=== PATIENT | female | born 1985 | race Caucasian/White ===

== ENCOUNTER 2020-07-11 05:33 | Emergency (ER) | payer SELFPAY ==
--- NOTE | 2020-07-11 06:23 | ED.PDOC ---
History of Present Illness - General Source: patient, RN notes reviewed, Vital Signs reviewed Exam Limitations: no limitations - History of Present Illness Initial Comments: Patient is a 35-year-old white female who presents with complaints of body aches, intermittent cough, sore throat, back pain with frequency of urination. Patient also complains of fever to 99.6 degrees. Patient denies any contact anybody with COVID. She is not short of breath. The body aches are throbbing in nature. Nothing makes them better or worse. Patient has not taken any medicine for this. Timing/Duration: 24 hours Severity: moderate Improving Factors: nothing Worsening Factors: nothing Associated Symptoms: cough, fever/chills, malaise <Hany Zambrano - Last Filed: 07/11/20 07:00> <Ayush White - Last Filed: 07/11/20 08:26> - General Chief Complaint: Respiratory Problem Stated Complaint: bodyaches, cough, back pain Time Seen by Provider: 07/11/20 05:47 - History of Present Illness Allergies/Adverse Reactions: Allergies NO KNOWN ALLERGY Allergy (Verified 07/11/20 06:08) Home Medications: Ambulatory Orders Ondansetron Odt [Zofran ODT] 4 mg PO Q8HR PRN #5 tab 07/11/20 Review of Systems - Review of Systems Constitutional: States: see HPI, fever, malaise. Denies: chills, weakness EENTM: States: no symptoms reported. Denies: eye pain, blurred vision, double vision Respiratory: States: see HPI, cough. Denies: short of breath, stridor, wheezing Cardiology: States: no symptoms reported. Denies: chest pain, palpitations, syncope Gastrointestinal/Abdominal: States: see HPI, nausea. Denies: abdominal pain, diarrhea, vomiting Genitourinary: States: see HPI, dysuria, pain - In her back Musculoskeletal: States: see HPI, back pain, joint pain. Denies: neck pain Neurological: States: no symptoms reported. Denies: headache, paresthesia, tremors, weakness Endocrine: States: no symptoms reported. Denies: increased hunger, increased thirst, increased urine Hematologic/Lymphatic: States: no symptoms reported. Denies: anemia, easy bleeding All other Systems: Reviewed and Negative <Hany Zambrano - Last Filed: 07/11/20 07:00> Past Medical History (General) - Patient Medical History Hx Seizures: No Hx Stroke: No Hx Dementia: No Hx Asthma: No Hx of COPD: No Hx Cardiac Disorders: No Hx Congestive Heart Failure: No Hx Pacemaker: No Hx Hypertension: No Hx Thyroid Disease: No Hx Diabetes: No Hx Gastroesophageal Reflux: No Hx Renal Disease: No Hx Cancer: No Hx of HIV: No Hx Hepatitis C: No Hx MRSA: No Surgical History: other - Vaccination History Hx Tetanus, Diphtheria Vaccination: No Hx Influenza Vaccination: No Hx Pneumococcal Vaccination: No - Social History Hx Tobacco Use: No Hx Chewing Tobacco Use: No Hx Alcohol Use: Yes Hx Substance Use: No Hx Substance Use Treatment: No Hx Depression: No Feels Threatened In Home Enviroment: No Feels Threatened In a Relationship: No Hx Physical Abuse: No Hx Emotional Abuse: No Hx Suspected Abuse: No - Female History Patient is a Female of Child Bearing Age (10 -59 yrs old): Yes Patient : No - Triage Comment ED Triage Comment: The patient was very anxious and was shaking. She appeared upset and kept stating that she was afraid of what she might have. She did not appear in distress and had no obvious signs of difficulty breathing. She complained of body aches from the Lumbar spine to her feet. <Hany Zambrano - Last Filed: 07/11/20 07:00> Family Medical History - Family History Mother Family History: No Known <Hany Zambrano - Last Filed: 07/11/20 07:00> Physical Exam - Physical Exam General Appearance: Alert, Anxious, Restless, Well Developed, Well Groomed, Well Hydrated, Well Nourished Eye Exam: bilateral normal Ears, Nose, Throat: hearing grossly normal, normal ENT inspection, normal pharynx Neck: non-tender, full range of motion, supple, normal inspection Respiratory: chest non-tender, lungs clear, normal breath sounds, no respiratory distress, no accessory muscle use Cardiovascular/Chest: normal peripheral pulses, no edema, no gallop, no JVD, no murmur, tachycardia Peripheral Pulses: radial,right: 2+, radial,left: 2+ Gastrointestinal/Abdominal: normal bowel sounds, non tender, soft, no organomegaly Back Exam: no vertebral tenderness, CVA tenderness (R), CVA tenderness (L) Extremity: normal range of motion, non-tender, normal inspection, no pedal edema Neurologic: machine repairer II-XII nml as tested, no motor/sensory deficits, alert, normal mood/affect, oriented x 3, other - Patient is extremely anxious Skin Exam: normal color, warm/dry Lymphatic: no adenopathy <Hany Zambrano - Last Filed: 07/11/20 07:00> Progress - Progress Progress: Differential diagnosis: Strep throat, viral URI, COVID, pneumonia among others. 07/11/20 07:00 Patient strep screen is negative. Urinalysis does not show infection. COVID is pending. Plan on transferring care to Dr. White for further disposition. - Results/Orders Results/Orders: 07/11/20 06:04 RESPIRATORY PANEL 2 Stat STREP A SCREEN CULTURE Stat Laboratory Results - last 24 hr 07/11/20 07/11/20 06:04 06:22 Urine Color Yellow Urine Appearance Clear Urine pH 6.[address] 1.020 Urine Protein Negative Urine Glucose (UA) Negative Urine Ketones Negative Urine Blood Negative Urine Nitrite Negative Urine Bilirubin Negative Urine Urobilinogen 0.2 Ur Leukocyte Esterase Negative Urine RBC 0-1 Urine WBC 0-1 Ur Epithelial Cells 5-10 Urine Bacteria Rare Group A Strep Rapid Negative COVID pending Vital Signs 07/11/20 07/11/20 05:51 06:33 Temperature 97.2 F L Pulse Rate [ 106 H 80 pulse ox] Respiratory 20 16 Rate Blood Pressure 143/86 132/81 [Right Arm] O2 Sat by Pulse 100 100 Oximetry <Hany Zambrano - Last Filed: 07/11/20 07:00> - Progress Progress: 07/11/20 08:25 The patient is doing okay at this point. The patient's respiratory panel was negative however her daughters panel did turn positive for rhinovirus and enterovirus. This is likely the source of the patient's symptoms. The patient will be instructed to keep well-hydrated and she will be written for Zofran for as needed use. ER warnings will be given. Routine follow-up with primary care doctor. <Ayush White - Last Filed: 07/11/20 08:26> Departure - Departure Time of Disposition: 07:01 Diet: resume usual diet Activity: increase activity as tolerated <Hany Zambrano - Last Filed: 07/11/20 07:00> - Departure Diet: bland diet <Ayush White - Last Filed: 07/11/20 08:26> - Departure Clinical Impression: Nonspecific syndrome suggestive of viral illness Disposition: Discharge to Home or Self Care Condition: Good Departure Forms: ED Discharge - Pt. Copy, Patient Portal Self Enrollment Prescriptions: Ondansetron Odt [Zofran ODT] 4 mg PO Q8HR PRN #5 tab PRN Reason: Nausea--Moderate Home Medications: Ambulatory Orders Ondansetron Odt [Zofran ODT] 4 mg PO Q8HR PRN #5 tab 07/11/20 Additional Instructions: Keep well-hydrated. Maintain a bland diet. Keep routine follow-up with primary care doctor. Zofran will be written for as needed use for any nausea. Maalox can be used additionally as needed.
[2020-07-11 08:26] VITALS: TEMP 96.5
[2020-07-11 08:42] VITALS: BP 119/78; O2SAT 97
== END 2020-07-11 08:35 | disposition home or self-care (01) ==
LOC: ER 05:33
DX: R05 Cough (principal); J02.9 Acute pharyngitis, unspecified; M54.5 Low back pain; R35.0 Frequency of micturition; M79.10 Myalgia, unspecified site; R30.0 Dysuria; Z20.828 Contact with and (suspected) exposure to other viral communicable diseases